=== PATIENT | female | born 1995 | race Caucasian/White ===

== ENCOUNTER 2018-02-17 13:51 | Emergency (ER) | payer SELFPAY ==
[~2018-02-17] VITALS: Ht 149.9 cm; Wt 55.0 kg
[2018-02-17] MEDS ORDERED: ACETAMINOPHEN 325MG TABLET PO ONE (16:15)
[2018-02-17 16:44] VITALS: BP 105/60
== END 2018-02-17 16:45 | disposition home or self-care (01) ==
LOC: ER 13:51
DX: S80.11XA Contusion of right lower leg, initial encounter (principal); S00.83XA Contusion of other part of head, initial encounter; V49.50XA Passenger injured in collision with unspecified motor vehicles in traffic accident, initial encounter; Y93.89 Activity, other specified; Y92.410 Unspecified street and highway as the place of occurrence of the external cause
CPT/HCPCS: 81025; 99283